=== PATIENT | male | born 2000 | race Caucasian/White ===

== ENCOUNTER 2019-03-11 20:12 | Emergency (ER) | payer MEDICAID ==
[2019-03-11] MEDS ORDERED: levETIRAcetam 250 MG TABLET PO STA (21:01)
--- NOTE | 2019-03-11 21:03 | ED Physician Documentation ---
PD HPI SEIZURE - Stated complaint Stated Complaint: SEIZURE/ HEAD PX - Chief complaint Chief Complaint: Neuro - History obtained from History obtained from: Patient, Friend - History of Present Illness Timing - onset: How many minutes ago (60) Witnessed: Witnessed Number of seizures: Single, Lasted minutes (5) Description of seizure activity: Generalized, Tonic clonic Injury during seizure: Fell, Head injury, Bit tongue. No: Neck injury, Shoulder dislocation Pain level max: 4 Pain level now: 3 Associated symptoms: Headache History of seizures: Known seizure disorder Contributing factors: Out of meds (ran out 3 days ago) Similar symptoms before: Diagnosis (known seizure disorder.) Review of Systems Ten Systems: 10 systems reviewed and negative Constitutional: denies: Fever, Chills Throat: denies: Sore throat Cardiac: denies: Chest pain / pressure Respiratory: denies: Cough GI: denies: Vomiting, Diarrhea Skin: denies: Rash Musculoskeletal: denies: Neck pain, Back pain Neurologic: reports: Headache, Head injury. denies: Focal weakness, Numbness, Confused, Altered mental status PD PAST MEDICAL HISTORY - Past Medical History Past Medical History: Yes Neuro: Seizure disorder - Present Medications Home Medications: Ambulatory Orders Medication Instructions Recorded Confirmed Levetiracetam [Keppra] 1,000 mg PO BID 03/11/19 03/11/19 Levetiracetam [Keppra] 1,000 mg PO BID #60 tablet 03/11/19 - Allergies Allergies/Adverse Reactions: Allergies Allergy/AdvReac Type Severity Reaction Status Date / Time acetaminophen [From Vicodin] Allergy Unknown Verified 03/11/19 20:23 hydrocodone [From Vicodin] Allergy Unknown Verified 03/11/19 20:23 - Living Situation Living Arrangement: reports: At home - Social History Does the pt have substance abuse?: No - Family History Family history: reports: Non contributory PD ED PE NORMAL - Vitals Vital signs reviewed: Yes - General General: Alert and oriented X 3, No acute distress, Well developed/nourished - HEENT HEENT: Atraumatic, PERRL, EOMI, Moist mucous membranes, Pharynx benign, Dentition benign, Other (Abrasions to the tongue. No laceration) - Neck Neck: Supple, no meningeal sign, No bony TTP - Cardiac Cardiac: RRR, Strong equal pulses - Respiratory Respiratory: No respiratory distress, Clear bilaterally - Abdomen Abdomen: Soft, Non tender, Non distended - Back Back: No spinal TTP - Derm Derm: Warm and dry - Extremities Extremities: No edema - Neuro Neuro: Alert and oriented X 3, driller hand 2-12 intact, No motor deficit, No sensory deficit, Normal speech Eye Opening: Spontaneous Motor: Obeys Commands Verbal: Oriented GCS Score: 15 - Psych Psych: Normal mood, Normal affect Results - Vitals Vitals: Vital Signs - 24 hr 03/11/19 03/11/19 03/11/19 20:23 21:26 21:31 Temperature 37 C Heart Rate 122 H 99 102 H Respiratory 16 16 16 Rate Blood Pressure 121/76 131/70 H 131/70 H O2 Saturation 99 99 100 Oxygen O2 Source Room air - Labs Labs: Laboratory Tests 03/11/19 03/11/19 03/11/19 21:02 21:02 21:27 WBC 6.3 RBC 4.60 L Hgb 14.6 Hct 41.8 L MCV 90.9 MCH 31.7 H MCHC 34.9 RDW 13.3 Plt Count 275 MPV 8.6 Neut # (Auto) 3.9 Lymph # (Auto) 1.7 Camp # (Auto) 0.5 Eos # (Auto) 0.1 Baso # (Auto) 0.1 Absolute Nucleated RBC 0.00 Nucleated RBC % 0.0 Sodium 139 Potassium 4.0 Chloride 101 Carbon Dioxide 27 Anion Gap 11.0 BUN 18 Creatinine 1.0 Estimated GFR (MDRD) 95 Glucose 119 H Calcium 9.1 Total Bilirubin 0.5 AST 22 ALT 18 Alkaline Phosphatase 72 Total Protein 7.3 Albumin 4.1 Globulin 3.2 Albumin/Globulin Ratio 1.3 Lipase 27 Urine Color YELLOW Urine Clarity CLEAR Urine pH 6.0 Ur Specific [place] >=1.030 H Urine Protein NEGATIVE Urine Glucose (UA) NEGATIVE Urine Ketones TRACE Urine Occult Blood NEGATIVE Urine Nitrite NEGATIVE Urine Bilirubin NEGATIVE Urine Urobilinogen 0.2 (NORMAL) Ur Leukocyte Esterase NEGATIVE Ur Microscopic Review NOT INDICATED Urine Culture Comments NOT INDICATED Urine Opiates Screen NEGATIVE Ur Oxycodone Screen NEGATIVE Urine Methadone Screen NEGATIVE Ur Propoxyphene Screen NEGATIVE Ur Barbiturates Screen NEGATIVE Ur Tricyclics Screen NEGATIVE Ur Phencyclidine Scrn NEGATIVE Ur Amphetamine Screen NEGATIVE U Methamphetamines Scrn NEGATIVE U Benzodiazepines Scrn NEGATIVE Urine Cocaine Screen NEGATIVE U Cannabinoids Screen POSITIVE H - Rads (name of study) Head CT Radiology: Prelim report reviewed, EMP read contemporaneously, See rad report (No acute intracranial abnormality) PD MEDICAL DECISION MAKING - ED course Complexity details: reviewed results, re-evaluated patient, considered differential, d/w patient ED course: 18-year-old male with a seizure disorder. Out of his Keppra. Appears to have had a seizure. He states that he has seizures every time he goes off of his Keppra. Does not have a local PCP yet. Just moved here 2 months ago. We will refill his Keppra for him. Given a gram of Keppra here. No acute findings on head CT. Patient counseled regarding signs and symptoms for which I believe and urgent re-evaluation would be necessary. Patient with good understanding of and agreement to plan and is comfortable going home at this time This document was made in part using voice recognition software. While efforts are made to proofread this document, sound alike and grammatical errors may occur. Departure - Departure Disposition: 01 Home, Self Care Clinical Impression: Seizure Condition: Good Instructions: ED Seizure Recurrent Follow-Up: [facility] [Provider Group] [facility] [Provider Group] [facility] [Provider Group] [facility] [Provider Group] Prescriptions: Levetiracetam [Keppra] 1,000 mg PO BID #60 tablet Comments: Use the Keppra as prescribed. Follow-up with your doctor for further care. Call your insurance company in the morning to find out if there is a clinic nearby that you can be seen at. Discharge Date/Time: 03/11/19 21:58
[2019-03-11 21:08] LABS: BASOPHILS # (AUTO) 0.1 10^3/uL (0.0-0.1); BASOPHILS % (AUTO) 1.1 %; EOSINOPHILS # (AUTO) 0.1 10^3/uL (0.0-0.7); EOSINOPHILS % (AUTO) 1.4 %; HGB - HEMOGLOBIN 14.6 g/dL (14.0-18.0); LYMPHOCYTES # (AUTO) 1.7 10^3/uL (1.5-3.5); LYMPHOCYTES % (AUTO) 26.5 %; MEAN CORPUSCULAR HEMOGLOBIN 31.7 pg (27.0-31.0); MEAN CORPUSCULAR HGB CONC 34.9 g/dL (32.0-36.0); MEAN CORPUSCULAR VOLUME 90.9 fL (80.0-94.0); MEAN PLATELET VOLUME 8.6 fL (7.4-11.4); MONOCYTES # (AUTO) 0.5 10^3/uL (0.0-1.0); MONOCYTES % (AUTO) 8.6 %; NEUTROPHILS # (AUTO) 3.9 10^3/uL (1.5-6.6); NEUTROPHILS % (AUTO) 62.2 %; PLT - PLATELET COUNT 275 10^3/uL (130-450); RED CELL DISTRIBUTION WIDTH 13.3 % (12.0-15.0); WHITE BLOOD COUNT 6.3 x10^3/uL (4.8-10.8)
[2019-03-11 21:26] VITALS: BP 131/70
[2019-03-11 21:27] LABS: ALBUMIN 4.1 g/dL (3.2-5.5); ALBUMIN/GLOBULIN RATIO 1.3 (1.0-2.2); BILIRUBIN,TOTAL 0.5 mg/dL (0.2-1.0); CALCIUM 9.1 mg/dL (8.5-10.3); TOTAL PROTEIN 7.3 g/dL (6.7-8.2)
[2019-03-11 21:30] LABS: MUDS CUTOFF CONCENTRATIONS CUTOFF CONC BELOW:
[2019-03-11 21:33] LABS: BILIRUBIN,URINE NEGATIVE (NEGATIVE); GLUCOSE, URINE (UA) NEGATIVE (NEGATIVE); KETONES,URINE (UA) TRACE mg/dL (NEGATIVE); LEUKOCYTE ESTERASE, URINE NEGATIVE (NEGATIVE); NITRITE,URINE NEGATIVE (NEGATIVE); OCCULT BLOOD,URINE NEGATIVE (NEGATIVE); PROTEIN,URINE NEGATIVE (NEGATIVE); UROBILINOGEN,URINE 0.2 (NORMAL) E.U./dL (NORMAL)
[2019-03-11 21:35] LABS: CLARITY,URINE CLEAR (CLEAR)
--- NOTE | 2019-03-11 21:37 | CT Report ---
Reason: head injury, seizure Procedure Date: 03/11/2019 Accession Number: [id number] / [id number] Procedure: CT - HEAD WO CPT Code: FULL RESULT: EXAM: CT HEAD EXAM DATE: 03/11/2019 08:54 PM. CLINICAL HISTORY: Head injury, seizure. COMPARISON: None. TECHNIQUE: Multiaxial CT images were obtained from the foramen magnum to the vertex. Reformats: Sagittal and coronal. IV contrast: None. In accordance with CT protocol optimization, one or more of the following dose reduction techniques were utilized for this exam: automated exposure control, adjustment of mA and/or KV based on patient size, or use of iterative reconstructive technique. FINDINGS: Study limited by nonstandard planes of imaging as patient is rotated in scanner. PARENCHYMA: No acute hemorrhage, transcortical infarction or mass. Normal andrade-white differentiation. EXTRA-AXIAL SPACES: No extra-axial fluid collections. No midline shift. VENTRICLES/SULCI: Normal for patient age. VASCULAR STRUCTURES: The visible vascular structures are unremarkable. SINUSES: The visible paranasal sinuses and mastoid air cells are unremarkable. ORBITS: Unremarkable. BONES: No displaced acute calvarial fracture. OTHER: There is a 4 x 4.5 mm dystrophic calcifications within the subcutaneous tissues overlying the right orbital rim. IMPRESSION: 1. No acute intracranial findings. 2. There is a 4 x 4.5 mm dystrophic calcifications within the subcutaneous tissues overlying the right orbital rim which may be sequela of old trauma. Recommend clinical correlation. [facility]
[2019-03-11 21:43] LABS: AMPHETAMINE SCREEN,URINE NEGATIVE (NEGATIVE); BENZODIAZEPINES SCREEN, URINE NEGATIVE (NEGATIVE); COCAINE SCREEN URINE NEGATIVE (NEGATIVE); METHADONE SCREEN, URINE NEGATIVE (NEGATIVE); METHAMPHETAMINES SCREEN, URINE NEGATIVE (NEGATIVE); OPIATE SCREEN, URINE NEGATIVE (NEGATIVE); OXYCODONE SCREEN, URINE NEGATIVE (NEGATIVE); PROPOXYPHENE SCREEN, URINE NEGATIVE (NEGATIVE); TRICYCLIC ANTIDEPRESSANT,URINE NEGATIVE (NEGATIVE)
== END 2019-03-11 21:58 | disposition home or self-care (01) ==
LOC: ED 20:12
DX: G40.909 Epilepsy, unspecified, not intractable, without status epilepticus (principal); T42.6X6A Underdosing of other antiepileptic and sedative-hypnotic drugs, initial encounter; Z91.128 Patient's intentional underdosing of medication regimen for other reason; S00.512A Abrasion of oral cavity, initial encounter; W19.XXXA Unspecified fall, initial encounter
CPT/HCPCS: 36415; 70450; 80053; 80306; 81003; 83690; 85025; 99284; A9270; 81001; 87086